=== PATIENT | male | born 1950 | race Caucasian/White ===

== ENCOUNTER 2016-09-18 09:26 | Outpatient (CLI) ==
--- NOTE | 2016-09-18 09:49 | DI ---
EXAM: Right clavicle two views HISTORY: Cystic swelling. 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 There is irregularity and sclerosis at the greater tubercle of the proximal humerus sugge sting chronic rotator cuff apparatus insertion pathology. This appears more noticeable. No acute c lavicular fracture is obvious. IMPRESSION: Arthritic changes of the shoulder.
--- NOTE | 2016-09-18 10:04 | US ---
EXAM: Nonvascular ultrasound of the right upper extremity. History: Swelling in the right clavicular region. Comparison: Right clavicle radiograph 09/18 2016 Technique: Multiple sonographic images through the right upper extremity shoulder region were obtai lainey. Color duplex Doppler was used to interrogate vascular flow. Findings / impression: Within the deep soft tissues of the right shoulder clavicular region, there is a 2.1 cm x 1.1 cm x 1.9 cm complicated collection of fluid with internal echoes. Differential di agnosis would include a bursitis, either degenerative or infectious/inflammatory. If symptoms persi st, recommend MRI.
== END 2016-09-18 09:27 | disposition home or self-care (01) ==
LOC: RAD 09:26
PROVIDERS: ATTEND Internal Medicine
DX: R22.31 Localized swelling, mass and lump, right upper limb (principal)
CPT/HCPCS: 76882

== ENCOUNTER 2017-02-25 06:36 | Outpatient (CLI) ==
--- NOTE | 2017-02-25 10:59 | ECHOSTRESS ---
Date of Exam: 02/25/17 Ordering Physician: JACQUE SINGH Reason for Echo: CHEST PAIN, SOB, PALPITATIONS, STRESS TEST --NO ISCHEMIA M-Mode Normal Adult Results LV Dimensions Normal Adult Results AoV Opening excursions >1.6 LVEDD-base- 3.5-5.8 Ao root dimensions 2.0-3.7 LVESD-base- 3.1-4.6 L. Atrium dimensions 1.9-3.8 Post. Wall thickness 0.8-1.1 IV septum (thickness) 0.7-1.2 Post. Wall excursion 0.72-1.3 Septal motion Systolic motion R. Ventricular cavity 1.5-2.0 LVEF 60% Paradoxical septal wall motion 2-D: NORMAL LEFT VENTRICULAR CONTRACTILITY--RESTING AND POST EXERCISE M-MODE: MV: AV: TV: PV: CHAMBER SIZE: WALL MOTION: NORMAL LEFT VENTRICULAR CONTRACTILITY--RESTING AND POST EXERCISE PERICARDIUM: INTERPRETATION: 1. NORMAL LEFT VENTRICULAR CONTRACTILITY--RESTING AND POST EXERCISE MTDD
--- NOTE | 2017-02-25 11:27 | STRESSECHO ---
Date of Test: 02/25/17 Reason for Exam: CHEST PAIN, SOB, PALPITATIONS, PVC'S Ordering Physician: JACQUE SINGH Current Medications: ADVAIR, ASA, COMBIVENT, FISH OIL, NORCO, TRIBEN, PROTONIX, METFORMIN, [place], MOBIC, CIALIS Physical Findings: S1, S2, NO S3 Resting EKG: SINUS RHYTHM/ PVC/ UNIFOCAL Target Heart Rate: 128/151 STAGE MPH/GRADE HEART RATE BPM BLOOD PRESSURE mmhg RHYTHM S-T SEGMENT +/- UP DOWN SYMPTOMS,COMMENTS At Rest 75 118/78 SR X NONE 1 1.7/10% 100 138/80 SR X NONE 2 2.5/12% 110 142/82 SR X NONE 3 3.4/14% 4 4.2/16% 5 5.0/18% Immediately after 123 SR X FATIGUE Durations of Exercise: 7:32 Maximum Heart Rate Reached: 123 Reason for Termination: FATIGUE 4 MINUTES POST EXERCISE: HR 86 BPM, BP 122/68 MMHG, SR, +/- INTERPRETATION: 95% OXYGEN SATURATION WITH EXERCISE ON ROOM AIR METS 10.1 1. NO EVIDENCE OF ISCHEMIA BY ST-T WAVE 2. NO CHEST PAIN OR CHEST DISCOMFORT 3. PVC'S FREQUENT AT REST WITH AT TIMES VENTRICULAR BIGEMINY-- LESS FREQUENT PVC 'S WITH EXERCISE 4. BLOOD PRESSURE RESPONSE: NORMAL NORMAL LEFT VENTRICULAR CONTRACTILITY--RESTING AND POST EXERCISE MTDD
--- NOTE | 2017-02-25 11:32 | ECHO2D ---
Date of Exam: 02/25/17 Ordering Physician: JACQUE SINGH Room #: OP Reason for Echo: CHEST PAIN, SOB, PALPITATIONS M-Mode Normal Adult Results LV Dimensions Normal Adult Results AoV Opening excursions >1.6 >1.6 LVEDD-base- 3.5-5.8 5.4 Ao root dimensions 2.0-3.7 4.1 LVESD-base- 3.1-4.6 L. Atrium dimensions 1.9-3.8 4.7 Post. Wall thickness 0.8-1.1 1.1 IV septum (thickness) 0.7-1.2 1.2 Post. Wall excursion 0.72-1.3 NORMAL Septal motion NORMAL Systolic motion R. Ventricular cavity 1.5-2.0 NORMAL LVEF 60% 45 TO 50% Paradoxical septal wall motion NORMAL 2-D : NORMAL LEFT VENTRICULAR CONTRACTILITY--NORMAL VALVES--ENLARGED LEFT ATRIAL CAVITY, NO EFFUSION, NO THROMBUS M-MODE: MV: NORMAL AV: NORMAL TV: NORMAL PV: CHAMBER SIZE: ENLARGED LEFT ATRIAL CAVITY WALL MOTION: NORMAL PERICARDIUM: NORMAL INTERPRETATION: 1. BORDERLINE LEFT VENTRICULAR HYPERTROPHY WITH ENLARGED LEFT ATRIAL CAVITY 2. NORMAL LEFT VENTRICLE CONTRACTILITY: EJECTION FRACTION 45% TO 50% DURING V- BIGEMINY 3. NORMAL VALVES MTDD
== END 2017-02-25 06:37 | disposition home or self-care (01) ==
LOC: CAR 06:36
PROVIDERS: ATTEND Internal Medicine
DX: R07.9 Chest pain, unspecified (principal); R06.02 Shortness of breath; R00.2 Palpitations

== ENCOUNTER 2017-12-02 10:38 | Outpatient (CLI) ==
--- NOTE | 2017-12-02 12:42 | CT ---
EXAM: CT right shoulder without contrast HISTORY: Right shoulder pain with complaints of a bump on the right anterior shoulder. COMPARISON: Right shoulder x-ray 04/02/2016 TECHNIQUE: Serial axial images of the right shoulder were obtained without contrast. These were view ed in multiple planes. FINDINGS: There is no displaced fracture or dislocation. There is mild narrowing and osteophyte form ation in the glenohumeral joint and the acromioclavicular joints. There are calcifications of the so ft tissues superior and lateral of the right humerus likely at the attachment of the rotator cuff nish t may represent prior injury. The adjacent osseous structures are unremarkable. Soft tissues of the right shoulder are normal. The lungs are clear. IMPRESSION: 1. No acute abnormality or displaced fracture of the right shoulder. 2. Degenerative disease in the glenohumeral and acromioclavicular joints. 3. Calcifications in the region of the rotator cuff attachment suggestive of prior injury/inflammati on.
--- NOTE | 2017-12-02 12:42 | CT ---
EXAM: CT left shoulder without contrast HISTORY: Bilateral shoulder pain COMPARISON: None TECHNIQUE: CT left shoulder performed without intravenous contrast. Coronal and sagittal reformatte d images obtained. FINDINGS: No fracture or dislocation. Mild to moderate osteoarthritis of the acromioclavicular join t with joint space narrowing and osteophyte formation. Small adjacent calcification likely degenerati ve. Mild osteoarthritis glenohumeral joint with joint space narrowing osteophyte formation. Minimal calcification adjacent to the glenoid is likely degenerative. IMPRESSION: Mild to moderate osteoarthritis.
== END 2017-12-02 10:39 | disposition home or self-care (01) ==
LOC: RAD 10:38
PROVIDERS: ATTEND Internal Medicine
DX: M25.512 Pain in left shoulder (principal); M25.511 Pain in right shoulder

== ENCOUNTER 2017-12-06 06:23 | Emergency (ER) ==
[2017-12-06 06:26] VITALS: BP 159/107; TEMP 98.2; BMI 33.3
[2017-12-06] MEDS ORDERED: TORADOL IVP STA (06:33)
[2017-12-06] MEDS ORDERED: DILAUDID 0.5 MG/0.5 ML SYRINGE IVP STA (06:33)
--- NOTE | 2017-12-06 06:48 | ED.PDOC ---
General Stated Complaint: im hurting from the back to the front==it started suddenly Time Seen by Physician: 06:30 Mode of Arrival: Walk-In Information Source: Patient Exam Limitations: No limitations Nursing and Triage Documentation Reviewed and Agree: Yes Does patient meet sepsis criteria?: No System Inflammatory Response Syndrome: Not Applicable <RHETTBEATASAGRARIO Last Filed: 12/06/17 06:46> <RAS DE LA FUENTE - Last Filed: 12/06/17 09:04> ED Provider: Dr. RAS DE LA FUENTE Chief Complaint: Abdominal Pain Primary Care Provider: JACQUE SINGH Sepsis Protocol: For patient's 13 years and over: Temp is 96.8 and below OR 101 and greater Pulse >90 BPM Resp >20/minute Acutely Altered Mental Status Are patient's symptoms suggestive of a new infection, such as: -Pneumonia -Skin, Soft Tissue -Endocarditis -UTI -Bone, Joint Infection -Implantable Device -Acute Abdominal Infection -Wound Infection -Meningitis -Blood Stream Catheter Infection -Unknown GI Complaint Exam - Abdominal Pain Complaint/Exam Onset: Sudden Duration: 5 hrs Symptoms Are: Still present Timing: Constant Initial Severity: Moderate Current Severity: Moderate Location of Pain: Discrete, RLQ Radiates To: Reports: Back, Flank Character: Reports: Sharp, Burning, Cramping, Colicky Aggravating: Reports: None Alleviating: Reports: Spontaneous resolution Associated Signs and Symptoms: Reports: Back pain, Nausea Abdominal Findings: Present: None Differential Diagnoses: Appendicitis, Bowel Obstruction, Constipation, Diverticulitis, Pancreatitis, Renal Colic, Ureteral Stone <JULIENNOLASAGRARIO Last Filed: 12/06/17 06:46> Review of Systems - Review Of Systems Constitutional: Reports: No symptoms Eyes: Reports: No symptoms Ears, Nose, Mouth, Throat: Reports: No symptoms Respiratory: Reports: No symptoms Cardiac: Reports: No symptoms GI: Reports: Abdominal pain, Nausea : Reports: No symptoms Musculoskeletal: Reports: No symptoms Skin: Reports: No symptoms Neurological: Reports: No symptoms Endocrine: Reports: No symptoms Hematologic/Lymphatic: Reports: No symptoms All Other Systems: Reviewed and Negative <RHETTBEATASAGRARIO Last Filed: 12/06/17 06:46> Past Medical History - Past Medical History Previously Healthy: Yes Endocrine: Reports: Unknown Cardiovascular: Reports: Unknown Respiratory: Reports: Unknown Hematological: Reports: Unknown Gastrointestinal: Reports: Unknown Genitourinary: Reports: Unknown Neuro/Psych: Reports: Unknown Musculoskeletal: Reports: Unknown Cancer: Reports: Unknown - Surgical History General Surgical History: Reports: Unknown - Family History Family History: Reports: Unknown - Social History Smoking Status: Current every day smoker, Heavy tobacco smoker Hx Substance Use: No Alcohol Screening: Heavy - Immunizations Tetanus Shot up to Date: Yes <LAYOSAGRARIO Last Filed: 12/06/17 06:46> Physical Exam - Physical Exam Appearance: Well-appearing, No pain distress, Well-nourished Pain Distress: Moderate Eyes: ALLY, EOMI, Conjunctiva clear ENT: Ears normal, Nose normal, Oropharynx normal Neck: Supple Respiratory: Airway patent, Breath sounds clear, Breath sounds equal, Respirations nonlabored Cardiovascular: RRR, Pulses normal, No rub, No murmur GI/: Soft Musculoskeletal: Normal strength Skin: Warm Neurological: Sensation intact Psychiatric: Affect appropriate, Mood appropriate <LAYOSAGRARIO Last Filed: 12/06/17 06:46> Re-Evaluation - Re-Evaluation Time of Re-Evaluation: 07:00 Status: Improved Vital Signs Stable: Yes Pain Level: 0 Appearance: NAD Lungs: Clear Skin: Warm and Dry Neuro: Alert and Oriented X3 CV: RRR - Re-Evaluation Time of Re-Evaluation: 08:45 Status: Improved Vital Signs Stable: Yes Pain Level: 0 Appearance: NAD Skin: Warm and Dry Neuro: Alert and Oriented X3 CV: RRR <RAS DE LA FUENTE Last Filed: 12/06/17 09:04> Physician Notification - Case Discussed Physician Notified: dr de la fuente Time of Notification: 06:49 <LAYOSAGRARIO Last Filed: 12/06/17 06:46> - Case Discussed Physician Notified: sina RODRIGUEZ Time of Notification: 09:03 (WILL SEE PT ON WEDNESDAY ) <RAS DE LA FUENTE Last Filed: 12/06/17 09:04> Critical Care Note - Critical Care Note Total Time (mins): 0 <RAS DE LA FUENTE Last Filed: 12/06/17 09:04> Course - Course Hematology/Chemistry: 12/06/17 06:40 12/06/17 06:40 <RAS DE LA FUENTE Last Filed: 12/06/17 09:04> - Course Orders, Labs, Meds: Lab Review 12/06/17 12/06/17 12/06/17 06:40 06:40 07:15 WBC 9.54 RBC 4.00 L Hgb 14.1 Hct 39.0 L MCV 97.5 H MCH 35.3 H MCHC 36.2 H RDW Coeff of [place] 12.3 Plt Count 163 Immature Gran % (Auto) 0.3 Neut % (Auto) 77.8 Lymph % (Auto) 12.8 [place] % (Auto) 8.1 Eos % (Auto) 0.5 Baso % (Auto) 0.5 Immature Gran # (Auto) 0.0 Neut # (Auto) 7.4 H Lymph # (Auto) 1.2 [place] # (Auto) 0.8 Eos # (Auto) 0.1 Baso # (Auto) 0.1 Sodium 135 L Potassium 3.5 Chloride 99 Carbon Dioxide 25 Anion Gap 14.5 BUN 11 Creatinine 1.14 H Estimated GFR (MDRD) 64.00 BUN/Creatinine Ratio 9.64 Glucose 275 H Calcium 8.5 Total Bilirubin 0.8 AST 21 ALT 26 Alkaline Phosphatase 69 Total Protein 5.8 Albumin 3.3 L Globulin 2.5 Albumin/Globulin Ratio 1.32 Amylase 32 Lipase 37 Urine Color Yellow Urine Clarity Clear Urine pH 7.5 Ur Specific [place] 1.015 Urine Protein Negative Urine Glucose (UA) 2+ Urine Ketones Trace Urine Blood 2+ Urine Nitrite Negative Urine Bilirubin Negative Urine Urobilinogen 0.2 Ur Leukocyte Esterase Negative Urine Microscopic RBC 50-100 Ur Squamous Epith Cells Not present Orders Category Date Time Status ED IV/MEDIPORT/POWERPORT .ONCE EMERGENCY 12/06/17 06:32 Active AMYLASE Stat LAB 12/06/17 06:40 Completed CBC W/ AUTO DIFF Stat LAB 12/06/17 06:40 Completed COMPREHENSIVE METABOLIC PANEL Stat LAB 12/06/17 06:40 Completed LIPASE Stat LAB 12/06/17 06:40 Completed URINALYSIS C & S IF INDICATED Stat LAB 12/06/17 07:15 Completed 0.9 % Sodium Chloride [Saline Flush] MEDS 12/06/17 06:32 Active 1 syr IVF PRN PRN Hydromorphone HCl [Dilaudid 0.5 mg/0.5 ml Syringe] MEDS 12/06/17 06:33 Discontinued 0.5 mg IVP ONCE STA Ketorolac Tromethamine [Toradol] MEDS 12/06/17 06:33 Discontinued 30 mg IVP ONCE STA CT ABD/PEL WO RENAL STONE PROT Stat RADS 12/06/17 06:32 Completed Medications Generic Name Dose Route Start Last Admin Trade Name Lesley PRN Reason Stop Dose Admin Sodium Chloride 1 syr 12/06/17 06:32 Saline Flush IVF PRN PRN To flush IV Discontinued Medications Generic Name Dose Route Start Last Admin Trade Name Fremiranda PRN Reason Stop Dose Admin Hydromorphone HCl 0.5 mg 12/06/17 06:33 12/06/17 06:42 Dilaudid 0.5 Mg/0.5 Ml Syringe IVP 12/06/17 06:34 0.5 mg ONCE STA Administration Ketorolac Tromethamine 30 mg 12/06/17 06:33 12/06/17 06:42 Toradol IVP 12/06/17 06:34 30 mg ONCE STA Administration Vital Signs: Temp Pulse Resp BP Pulse Ox 12/06/17 06:23 98.2 F 70 12 159/107 H 97 Departure <SAGRARIO VASQUES - Last Filed: 12/06/17 06:46> - Departure Time of Disposition: 09:02 Pt referred to PMD for follow-up: Yes IPMP verified?: No <RAS DE LA FUENTE - Last Filed: 12/06/17 09:04> - Departure Disposition: HOME SELF-CARE Discharge Problem: Renal calculus or stone, Abdominal pain Instructions: Kidney Stones (ED), Renal Colic (ED), Flank Pain (ED), How to Strain Your Urine (ED) Condition: Good Prescriptions: Hydrocodone/Acetaminophen [[place] 10-325 Tablet] 1 each PO Q8HR #12 tablet Tamsulosin HCl [Flomax] 0.4 mg PO DAILY #5 cap.er.24h Allergies/Adverse Reactions: Allergies No Known Allergies Allergy (Unverified 12/06/17 06:27) Home Medications: Ambulatory Orders Fish Oil/Dha/Epa [Fish Oil 1,200 mg Fish Oil] 1 cap PO DAILY 02/20/14 Fluticasone/Salmeterol [Advair 250-50 Diskus] 1 puff IH BID 02/20/14 Ipratropium/Albuterol Sulfate [Combivent Respimat Inhal [place]] 4 gm IH QID 02/20 Atorvastatin Calcium [Lipitor] 20 mg PO BEDTIME 12/06/17 Diclofenac Sodium 75 mg PO BID 12/06/17 Hydrocodone/Acetaminophen [[place] 10-325 Tablet] 1 each PO Q8HR #12 tablet Indomethacin 50 mg PO TID 12/06/17 Lorazepam [Ativan] 0.5 mg PO DAILY PRN 12/06/17 Meloxicam [Mobic] 15 mg PO DIRECTED PRN 12/06/17 Metformin HCl [Glucophage] 1,000 mg PO BID 12/06/17 Olmesartan/Amlodipin/Hcthiazid [Evnmayn-Aytbcm-Epaz 40-10-25Mg] 1 each PO DAILY 12/06/17 Pantoprazole Sodium [Protonix] 40 mg PO BIDAC 12/06/17 Tadalafil [Cialis] 5 mg PO PRN PRN 12/06/17 Tamsulosin HCl [Flomax] 0.4 mg PO DAILY #5 cap.er.24h 12/06/17
--- NOTE | 2017-12-06 07:24 | CT ---
EXAM: CT ABDOMEN AND PELVIS HISTORY: Right flank pain TECHNIQUE: CT abdomen and pelvis without intravenous contrast. Images were reconstructed using 3 mm section thickness. Reformations were prepared. COMPARISON: None FINDINGS: Diagnostic limitations exist without including contrast enhanced images. There is mild to moderate right hydronephrosis and ureteral dilatation. Moderate right perinephric fat stranding is present. There is a distal right ureteral calculus located about 3 cm superior to the vesicoureteral junction measuring 5.3 x 3.5 x 6.2 mm. Left ureter is clear. Bilateral nephrolithiasis is present with large st calculus remaining located on the left at 8.2 mm. Normal urinary bladder. Coarse calcifications within the prostate without definite prostate enlargement. No focal hepatic or splenic lesion is identified. Gallbladder and pancreas appear normal. Adrenal g lands are within normal limits. Minimal atherosclerotic disease. Stomach appears normal. A 3.1 cm d uodenal diverticulum, second - third portion. Normal appendix and general bowel gas pattern. Normal appendix. Mildly prominent fatty bilateral inguinal canals. Bones reveal degenerative changes of th e lower spine and there is arthropathy of the sacroiliac joints and hips. Lung bases are clear. No pneumoperitoneum. IMPRESSION: 1. Mild to moderate right hydronephrosis secondary to a distal ureteral calculus. Bilateral nephrol ithiasis. 2. Duodenal diverticulum.
== END 2017-12-06 09:40 | disposition home or self-care (01) ==
LOC: ED 06:23
DX: R10.31 Right lower quadrant pain (principal); R11.0 Nausea; M54.9 Dorsalgia, unspecified; N20.0 Calculus of kidney
CPT/HCPCS: 36415; 74176; 80053; 81001; 82150; 83690; 85025; 96374; 96375; 99283

== ENCOUNTER 2018-08-10 23:35 | Emergency (ER) ==
[2018-08-10 23:45] VITALS: TEMP 98.1; BMI 33.0
[2018-08-11] MEDS ORDERED: PROTONIX IV IVP STA (00:13)
[2018-08-11] MEDS ORDERED: ZOFRAN 4 MG/2 ML IVP STA (00:13)
[2018-08-11] MEDS ORDERED: LACTATED RINGERS 1,000 ML IV STA (00:13)
[2018-08-11] MEDS ORDERED: MORPHINE 4 MG/ML SYRINGE IVP STA (00:13)
[2018-08-11] MEDS ORDERED: PROTONIX IV ONE (00:25)
[2018-08-11] MEDS ORDERED: DILAUDID 1 MG/ML SYRINGE IVP STA (00:45)
--- NOTE | 2018-08-11 00:49 | ED.PDOC ---
General ED Provider: Dr. MICHELLE HERNANDEZ Chief Complaint: Abdominal Pain Stated Complaint: Patient is a 68 year old male who comes to the ER with severe LLQ abdominal pain that started two hours ago. Admits to heavy drinking last use of rum was 4 hours ago and had 8 oz. He denies any vomiting but felt nauseated. Last colonoscopy was done 10 years ago and was normal Time Seen by Physician: 23:40 Mode of Arrival: Walk-In Information Source: Patient Primary Care Provider: JACQUE SINGH Seen Within Last 72 Hours for Same Complaint By: ED Nursing and Triage Documentation Reviewed and Agree: Yes Does patient meet sepsis criteria?: No System Inflammatory Response Syndrome: Not Applicable Sepsis Protocol: For patient's 13 years and over: Temp is 96.8 and below OR 101 and greater Pulse >90 BPM Resp >20/minute Acutely Altered Mental Status Are patient's symptoms suggestive of a new infection, such as: -Pneumonia -Skin, Soft Tissue -Endocarditis -UTI -Bone, Joint Infection -Implantable Device -Acute Abdominal Infection -Wound Infection -Meningitis -Blood Stream Catheter Infection -Unknown GI Complaint Exam - Abdominal Pain Complaint/Exam Onset: Gradual Duration: 2 hours ago Symptoms Are: Still present Timing: Constant Initial Severity: Moderate Current Severity: Severe Location of Pain: LLQ Radiates To: Denies: Chest, Back, Flank, LLQ, RLQ, Inguinal Character: Reports: Aching, Throbbing Aggravating: Reports: Food Alleviating: Reports: None Associated Signs and Symptoms: Reports: Diaphoresis, Blood in stool, Nausea Review of Systems - Review Of Systems Constitutional: Reports: No symptoms Eyes: Reports: No symptoms Ears, Nose, Mouth, Throat: Reports: No symptoms Respiratory: Reports: No symptoms Cardiac: Reports: No symptoms GI: Reports: Abdominal pain, Nausea, Poor appetite : Reports: No symptoms Musculoskeletal: Reports: No symptoms Skin: Reports: No symptoms Neurological: Reports: Anxiety Endocrine: Reports: No symptoms Hematologic/Lymphatic: Reports: No symptoms All Other Systems: Reviewed and Negative Past Medical History - Past Medical History Previously Healthy: Yes Endocrine: Reports: DM 2, Dyslipidemia Cardiovascular: Reports: Hypertension Respiratory: Reports: Asthma Hematological: Reports: None Gastrointestinal: Reports: GERD Genitourinary: Reports: Kidney stones Neuro/Psych: Reports: None Musculoskeletal: Reports: Arthritis, Joint Pain Cancer: Reports: None - Surgical History General Surgical History: Reports: Orthopedic (Left shoulder tendon rototor, Knee replacement ) - Family History Family History: Reports: Unknown - Social History Smoking Status: Current every day smoker, Heavy tobacco smoker Hx Substance Use: No Alcohol Screening: Heavy - Immunizations Tetanus Shot up to Date: Yes Physical Exam - Physical Exam Appearance: Ill-appearing, Obese Ill-appearing: Moderate Pain Distress: Severe Eyes: ALLY, EOMI, Conjunctiva clear Neck: Supple Respiratory: Airway patent, Breath sounds clear, Breath sounds equal, Respirations nonlabored Cardiovascular: RRR, Pulses normal, No rub, No murmur GI/: Soft, Tender (Left Lower quadrant ) Musculoskeletal: Normal strength, ROM intact, No edema, No calf tenderness Skin: Warm, Dry, Normal color Neurological: Sensation intact, Motor intact, Reflexes intact, Cranial nerves intact, Alert, Oriented Psychiatric: Anxious Interpretation - Radiology Interpretation Radiology Interpretation By: Radiologist Radiology Results: Positive (Left Ureteral stone) Exam Interpreted: CT Scan - EKG Interpretation Time of EKG #1: 01:04 Rate: Normal Rhythm: Sinus Ectopy: PVCs [place]: NL ST Segment: Normal Interpretation: sinus Rhythm, RBBB Critical Care Note - Critical Care Note Total Time (mins): 45 Course - Course Hematology/Chemistry: 08/11/18 00:20 08/11/18 00:20 Orders, Labs, Meds: Lab Review 08/11/18 08/11/18 08/11/18 00:00 00:20 00:20 WBC 7.79 RBC 4.14 L Hgb 14.7 Hct 41.0 L MCV 99.0 H MCH 35.5 H MCHC 35.9 H RDW Coeff of [place] 12.6 Plt Count 222 Immature Gran % (Auto) 0.3 Neut % (Auto) 63.1 Lymph % (Auto) 25.9 [place] % (Auto) 8.9 Eos % (Auto) 1.0 Baso % (Auto) 0.8 Immature Gran # (Auto) 0.0 Neut # (Auto) 4.9 Lymph # (Auto) 2.0 [place] # (Auto) 0.7 Eos # (Auto) 0.1 Baso # (Auto) 0.1 Sodium 138.6 Potassium 3.59 Chloride 101.5 Carbon Dioxide 20.2 L Anion Gap 20.49 BUN 8.8 L Creatinine 0.84 Estimated GFR (MDRD) 90.00 BUN/Creatinine Ratio 10.47 Glucose 169.5 H Calcium 9.52 Total Bilirubin 0.54 AST 34.5 ALT 20.9 Alkaline Phosphatase 69.9 Total Protein 6.78 Albumin 4.51 Globulin 2.27 Albumin/Globulin Ratio 1.98 Amylase 62.8 Lipase 188.2 Urine Color Yellow Urine Clarity Clear Urine pH 5.0 Ur Specific [place] 1.020 Urine Protein Negative Urine Glucose (UA) Negative Urine Ketones Trace Urine Blood Trace-intact Urine Nitrite Negative Urine Bilirubin Negative Urine Urobilinogen 0.2 Ur Leukocyte Esterase Negative Urine Microscopic RBC 2-5 Urine Microscopic WBC 0-2 Ur Squamous Epith Cells Not present Calcium Oxalate Crystal Trace Orders Category Date Time Status EKG-(ED ONLY) Stat CARDIO 08/11/18 00:56 Ordered ED IV/MEDIPORT/POWERPORT .ONCE EMERGENCY 08/11/18 00:13 Active AMYLASE Stat LAB 08/11/18 00:20 Completed CBC W/ AUTO DIFF Stat LAB 08/11/18 00:20 Completed COMPREHENSIVE METABOLIC PANEL Stat LAB 08/11/18 00:20 Completed LIPASE Stat LAB 08/11/18 00:20 Completed TROPONIN I Stat LAB 08/11/18 00:20 Received URINALYSIS C & S IF INDICATED Stat LAB 08/11/18 00:00 Completed 0.9 % Sodium Chloride [Saline Flush] MEDS 08/11/18 00:13 Ordered 1 syr IVF PRN PRN Hydromorphone HCl [Dilaudid 1 mg/ml Syringe] MEDS 08/11/18 00:45 Discontinued 1 mg IVP ONCE STA Ketorolac Tromethamine [Toradol] MEDS 08/11/18 01:08 Stat 30 mg IVP ONCE STA Morphine Sulfate [Morphine 4 mg/ml Syringe] MEDS 08/11/18 00:13 Discontinued 4 mg IVP ONCE STA Ondansetron HCl/Pf [Zofran 4 mg/2 ml] MEDS 08/11/18 00:13 Discontinued 4 mg IVP ONCE STA Pantoprazole Sodium [Protonix IV] MEDS 08/11/18 00:25 Discontinued 40 mg .ROUTE .STK-MED ONE Pantoprazole Sodium [Protonix IV] MEDS 08/11/18 00:13 Discontinued 40 mg IVP ONCE STA Ringers Lactated Solution [Lactated Ringers] 1,000 ml MEDS 08/11/18 00:[address] ABD/PEL WO RENAL STONE PROT Stat RADS 08/11/18 00:13 Taken Medications Generic Name Dose Route Start Last Admin Trade Name Jose Mariaq PRN Reason Stop Dose Admin Lactated Ringer's 1,000 mls @ 1,000 mls/hr 08/11/18 00:13 08/11/18 00:27 Lactated Ringers IV 08/11/18 01:12 1,000 mls/hr BOLUS STA Administration Sodium Chloride 1 syr 08/11/18 00:13 08/11/18 00:29 Saline Flush IVF 1 syr PRN PRN Administration To flush IV Discontinued Medications Generic Name Dose Route Start Last Admin Trade Name Freq PRN Reason Stop Dose Admin Hydromorphone HCl 1 mg 08/11/18 00:45 08/11/18 00:49 Dilaudid 1 Mg/Ml Syringe IVP 08/11/18 00:46 1 mg ONCE STA Administration Morphine Sulfate 4 mg 08/11/18 00:13 08/11/18 00:27 Morphine 4 Mg/Ml Syringe IVP 08/11/18 00:14 4 mg ONCE STA Administration Ondansetron HCl 4 mg 08/11/18 00:13 08/11/18 00:28 Zofran 4 Mg/2 Ml IVP 08/11/18 00:14 4 mg ONCE STA Administration Pantoprazole Sodium 40 mg 08/11/18 00:13 08/11/18 00:28 Protonix Iv IVP 08/11/18 00:14 40 mg ONCE STA Administration Vital Signs: Temp Pulse Resp BP Pulse Ox 08/10/18 23:36 98.1 F 76 20 159/91 H 95 Departure - Departure Time of Disposition: 01:27 Disposition: HOME SELF-CARE Discharge Problem: Urethral calculus Instructions: Kidney Stones (ED) Condition: Stable Pt referred to PMD for follow-up: Yes IPMP verified?: No Additional Instructions: Take medications as prescribed Follow up with PCP in 1-2 days Prescriptions: Hydrocodone Bit/Acetaminophen [[place] 5-325] 1 each PO Q6HR #14 tablet Tamsulosin HCl [Flomax] 0.4 mg PO DAILY #10 cap.er.24h Allergies/Adverse Reactions: Allergies No Known Allergies Allergy (Verified 08/10/18 23:45) Home Medications: Ambulatory Orders Fluticasone/Salmeterol [Advair 250-50 Diskus] 1 puff IH BID 02/20/14 Ipratropium/Albuterol Sulfate [Combivent Respimat Inhal [place]] 4 gm IH BID 02/20 Atorvastatin Calcium [Lipitor] 20 mg PO BEDTIME 12/06/17 Lorazepam [Ativan] 0.5 mg PO DAILY PRN 12/06/17 Meloxicam [Mobic] 15 mg PO DIRECTED PRN 12/06/17 Metformin HCl [Glucophage] 1,000 mg PO BID 12/06/17 Olmesartan/Amlodipin/Hcthiazid [Vxupyic-Nafihf-Cdgg 40-10-25Mg] 1 each PO DAILY 12/06/17 Pantoprazole Sodium [Protonix] 40 mg PO BIDAC 12/06/17 Tadalafil [Cialis] 5 mg PO DAILY 12/06/17 Hydrocodone/Acetaminophen [[place] 5-325 Tablet] 1 each PO TID 08/10/18 Hydrocodone Bit/Acetaminophen [[place] 5-325] 1 each PO Q6HR #14 tablet 08/11/18 Tamsulosin HCl [Flomax] 0.4 mg PO DAILY #10 cap.er.24h 08/11/18 Disposition Discussed With: Patient
[2018-08-11] MEDS ORDERED: TORADOL IVP STA (01:08)
--- NOTE | 2018-08-11 01:20 | CT ---
EXAM: CT of the abdomen and pelvis without contrast. HISTORY: Diffuse abdominal pain. Severe pain to left lower abdomen. PROCEDURE: Contiguous axial CT images of the abdomen and pelvis without contrast with coronal and sa gittal reformats. FINDINGS: The liver, gallbladder, pancreas and spleen are normal in appearance. There is bilateral a drenal hyperplasia. There is a fluid density cyst in the right kidney. There is a 3 mm calcificatio n in the proximal left ureter with mild left hydronephrosis and hydroureter. There is a 9 mm nonobst ructive calcification in the left kidney. There is minimal left perinephric low-density fluid which may represent a calyceal rupture. The abdominal aorta is within normal limits in diameter. The appe ndix is normal in appearance. There is diverticulosis of the colon with no evidence of diverticuliti s. No free fluid or free air in the abdomen or pelvis. The bladder is minimally filled and normal i n appearance. The seminal vesicles are unremarkable. There are calcifications in the prostate gland . There are degenerative changes in the spine. Impression: Left ureterolithiasis as described with mild left hydronephrosis and hydroureter. Minimal left perinephric low-density fluid which may represent a calyceal rupture. Nonobstructive left nephrolithiasis as described. Bilateral adrenal hyperplasia. Diverticulosis of the colon.
[2018-08-11 01:21] VITALS: BP 152/111
[2018-08-11] MEDS ORDERED: FLOMAX PO STA (01:25)
== END 2018-08-11 03:00 | disposition home or self-care (01) ==
LOC: ED 23:35
DX: N21.1 Calculus in urethra (principal); E11.9 Type 2 diabetes mellitus without complications; E78.5 Hyperlipidemia, unspecified; I10 Essential (primary) hypertension; Z87.442 Personal history of urinary calculi; F17.210 Nicotine dependence, cigarettes, uncomplicated; Z79.899 Other long term (current) drug therapy
CPT/HCPCS: 36415; 74176; 80053; 81001; 82150; 83690; 84484; 85025; 93005; 93010; 96361; 96374; 96375; 99284